=== PATIENT | female | born 1945 | race Caucasian/White ===

== ENCOUNTER 2024-04-16 22:19 | Emergency (ER) | payer MEDICARE, OTHER, SELFPAY ==
[2024-04-16 22:22] VITALS: BP 170/110
--- NOTE | 2024-04-16 23:33 | ED.SKININJ ---
HPI-Injury
General
Chief Complaint: Skin Surface Trauma
Time Seen by Provider: 04/16/24 22:51
Course
Vital Signs
Initial and Last Documented VS:
Initial Vital Signs
Temp Pulse Resp BP Pulse Ox
98.7 F 109 20 170/110 97
04/16/24 22:22 04/16/24 22:22 04/16/24 22:22 04/16/24 22:22 04/16/24 22:22
Last Documented Vital Signs
Temp Pulse Resp BP Pulse Ox
98.7 F 109 20 170/110 97
04/16/24 22:22 04/16/24 22:22 04/16/24 22:22 04/16/24 22:22 04/16/24 22:22
ED Attending Note
-
Portions of this chart may have been created with voice recognition software.� Occasional wrong word or��sound alike� substitutions may have occurred due to the inherent limitations of voice recognition software.
Discharge Plan
Departure
Referrals:
Montse Hung DO [Family Provider] -
Interventions
Interventions:
*Risk Screen - Suicide Last Done: 04/16/24 22:22
*General Assessment Last Done: 04/16/24 22:22
*Neglect/Abuse Screening Last Done: 04/16/24 22:22
ED- Fall Risk Assessment Last Done: 04/16/24 23:04
*ED COVID-19 Vaccine History Last Done: 04/16/24 23:02
ED-Skin Assessment Last Done: 04/16/24 23:03
Discharge Date and Time
Print Language: ROMANIAN
--- NOTE | 2024-04-16 23:35 | ED.SKININJ ---
HPI-Injury
General
Chief Complaint: Skin Surface Trauma
Source: patient
Exam Limitations: none
Time Seen by Provider: 04/16/24 22:51
Nursing documentation reviewed up to this point in time: agreed with
History of Present Illness-Injury
Is this injury a work related problem?: No
Is pt an associate of [facility]?: No
Initial Injury comments:
Cut finger while cutting vegetables. Sustained a skin avulsion injury to left distal 5th finger. INjury occurred just [employer]
Past History
Past History
ED Past Medical History: None
Review of Systems
Review of Systems
Allergies reviewed?: Yes
All Other Systems: ROS reviewed and negative except as documented in HPI and ROS
Constitutional: Reports no symptoms
Musculoskeletal: Reports no symptoms
Skin: Reports other (skin avulsion left distal 5th finger)
Neurological: Reports no symptoms
Psychiatric: Reports no symptoms
Skin Exam
Avulsion
Left Distal Fifth Finger:
Type of avulsion injury: superfical
Any active bleeding?: low grade venous oozing
Distal skin color and temperature: normal-warm & good color
Normal distal neurovascular exam: Yes
Phy Exam
General Physical Exam
General Presentation: well appearing and no apparent distress
General age: appears stated age
General Skin: warm and dry
General Habitus: normal
Musculoskeletal Exam
Musculoskeletal Exam: full ROM and neuro vasc intact
Skin Exam
Skin Exam: normal color, warm/dry and no rash
Psychiatric Exam
Psychiatric Exam: normal mood/affect
Course
Orders/Labs/Results
Orders:
Orders
04/16/24 23:33
Tetanus/Diphth/Acelpertussis [Adacel] 0.5 ml IM .ONCE ONE
04/16/24 23:40
Ibuprofen [Motrin] 400 mg PO NOW STA
Vital Signs
Initial and Last Documented VS:
Initial Vital Signs
Temp Pulse Resp BP Pulse Ox
98.7 F 109 20 170/110 97
04/16/24 22:22 04/16/24 22:22 04/16/24 22:22 04/16/24 22:22 04/16/24 22:22
Last Documented Vital Signs
Temp Pulse Resp BP Pulse Ox
98.7 F 109 20 170/110 97
04/16/24 22:22 04/16/24 22:22 04/16/24 22:22 04/16/24 22:22 04/16/24 22:22
*Critical Care Note
Total Time (30-74mins, 75-104mins- exclusive of procedures): Not Applicable
ED Attending Note
-
Portions of this chart may have been created with voice recognition software.� Occasional wrong word or��sound alike� substitutions may have occurred due to the inherent limitations of voice recognition software.
Discharge Plan
Departure
Patient Disposition: Home (Routine Discharge)
Date of Disposition: 04/16/24
Time of Disposition: 23:33
Patient with high blood pressure during this ER visit?: No
Condition: Good
Covid-19: Not Applicable
Discharge Problem:
Avulsion of skin
Instructions: Gelfo[place]
Referrals:
Montse Hung, [Family Provider] - Follow up in 2-3 days
Interventions
Interventions:
*Risk Screen - Suicide Last Done: 04/16/24 22:22
*General Assessment Last Done: 04/16/24 22:22
*Neglect/Abuse Screening Last Done: 04/16/24 22:22
ED- Fall Risk Assessment Last Done: 04/16/24 23:04
*ED COVID-19 Vaccine History Last Done: 04/16/24 23:02
ED-Skin Assessment Last Done: 04/16/24 23:03
Discharge Date and Time
Print Language: [email or web address]
[2024-04-16] MEDS: ADACEL 0.5 ML IM (23:39)
== END 2024-04-16 23:56 | disposition home or self-care (01) ==
LOC: EMR 22:19
PROVIDERS: EMERGENCY PHYSICIAN Student in an Organized Health Care Education/Training Program; FAMILY PHYSICIAN Internal Medicine
DX: S61.207A Unspecified open wound of left little finger without damage to nail, initial encounter (principal); X58.XXXA Exposure to other specified factors, initial encounter; Z23 Encounter for immunization
CPT/HCPCS: 99282; 90471; 90715